=== PATIENT | female | born 1960 | race Caucasian/White ===

== ENCOUNTER → 2017-03-05 | Outpatient (CLI) | payer OTHER ==
[~2017-03-05] MED LIST: CALC500C70 PO; CODCAP PO; OXYC-57 PO; TUMERIC PO; ULT50X PO; VITAMIN B12 PO; VITAMIN K PO; black cohash PO
== END | disposition home or self-care (01) ==
LOC: C.LAB 16:06
PROVIDERS: ATTEND Family Medicine
DX: R53.81 Other malaise (principal); E61.9 Deficiency of nutrient element, unspecified